=== PATIENT | female | born 1970 | race African-American/Black ===

== ENCOUNTER 2016-05-13 17:23 | Emergency (ER) | payer OTHER ==
[~2016-05-13] VITALS: Ht 165.1 cm; Wt 99.8 kg
[~2016-05-13 17:23] MED LIST: AMOXICILLIN500 M1 PO; NORCO 325 MG-51 TAB PO; VITAMIN D50000 IU PO
[2016-05-13 17:49] VITALS: BP 132/87
--- NOTE | 2016-05-13 18:46 | ED INFLUENZA/URI COMPLAINT ---
History of Present Illness General Chief Complaint: General Adult Stated Complaint: NECK SWELLING X 1DAY Source: patient, old records Exam Limitations: no limitations Vital Signs & Intake/Output Vital Signs & Intake/Output Vital Signs Date Time Temp Pulse Resp B/P Pulse O2 O2 Flow FiO2 Ox Delivery Rate 05/13 1749 97.9 72 18 132/87 96 Room Air ED Intake and Output 05/14 0000 03 1200 Intake Total Output Total Balance Patient 220 lb Weight Allergies Coded Allergies: NO KNOWN ALLERGIES (05/25/13) Reconcile Medications Amoxicillin/Potassium Clav (Augmentin 875-125 Tablet) 875 MG-125 MG TABLET 1 TAB PO BID pharyngitis Ergocalciferol (Vitamin D2) (Vitamin D2) 50,000 UNIT CAPSULE 1 CAP PO ONCE A WEEK SUPPLEMENT (Reported) Levothyroxine Sodium 50 MCG TABLET 1 TAB PO DAILY THYROID (Reported) Metformin HCl (Metformin HCl ER) (Unknown Strength) TAB.ER.24H (Unknown Dose) UNKNOWN (Reported) Multivitamin (Multi-Day Vitamins) 1 EACH TABLET 1 TAB PO DAILY SUPPLEMENT ( Reported) Triage Note: RECEIVED 46 YO FEMALE C/O LEFT NECK SWELLING AND PAIN X 3 DAYS, DIFFICULTY SWALLOWING. PT HAS HAD UPPER RESPIRATORY SYMPTOMS X ONWE WEEK. Triage Nurses Notes Reviewed? yes Onset: Gradual Duration: week(s): (1), constant Timing: recent history Severity: mild, moderate Severity Numbers: 4 Prior Episodes/Possible Cause: occassional episodes No Modifying Factors: none Associated Symptoms: earache, nasal congestion, nasal drainage, sore throat HPI: 46-year-old female with history of hypothyroid presents emergency room complaining of one-week history of rhinorrhea congestion and facial pressure left ear pain and sore throat. She has been using [id number] medications with improvement of her congestion however states the sore throat persist. She denies any recent sick contacts or recent travel, no fevers however positive chills. No shortness of breath cough chest pain abdominal pain nausea vomiting or diarrhea. There are no modifying factors or associated symptoms otherwise. (ABBI AMATO) Past History Travel History Traveled to [place] past 21 day No Medical History Any Pertinent Medical History? see below for history Neurological: NONE EENT: NONE Cardiovascular: NONE Respiratory: NONE Gastrointestinal: NONE Hepatic: NONE Renal: NONE Musculoskeletal: NONE Psychiatric: NONE Endocrine: hypothyroidism Blood Disorders: NONE Cancer(s): NONE Surgical History Surgical History: non-contributory Psychosocial History What is your primary language [place] Tobacco Use: Never used Family History Hx Contributory? No (ABBI AMATO) Review of Systems Review of Systems Constitutional: Reports: see HPI. All Other Systems: Reviewed and Negative Comments Review of systems: See HPI, All other systems negative. Constitutional, no chills no fever, no malaise no weight loss HEENT: No visual changes sore throat no congestion, no ear pain Cardiovascular: No chest pain , no palpitation , Skin, no jaundice no rashes, no change in skin Respiratory: No dyspnea no cough no sputum GI: No nausea no vomiting, no diarrhea, no bloating/constipation : No dysuria No hematuria, Muscle skeletal: No joint pain, no joint swelling, no back pain, no neck pain, Neurologic: No numbnessno headache Psych: No stress Heme/endocrine: No bruising no bleeding Immunology: No lymphadenopathy, (ABBI AMATO) Physical Exam Physical Exam General Appearance: well developed/nourished, alert, awake Ears, Nose, Throat: moist mucous membrane Comments: Well-developed well-nourished patient in no apparent distress. Head/Face: Atraumatic, no maxillary/frontal sinus tenderness, no facial swelling Eyes: PERRL, EOMI, no conjunctival injection Ear:External auditory canal and Tympanic membranes clear, no erythema, no FB. Nose: atraumatic.Normal inspection: No bleeding, no septal hematoma Throat: Moist mucous membranes.mild pharyngeal erythema no exudate no trismus no uvular displacement no exudate no stridor/drooling or assymetry. No swelling or edema. Neck: Supple, (+) Anterior cervical lymphadenopathy, FROM Back: FROM, Nontender Cardiovascular: Regular rate and rhythms no murmurs rubs or gallops, Respiratory: Chest nontender.There were no bony deformities, no asymmetry. No respiratory distress. Patient speaking in full complete sentences. Breath sounds clear to auscultation bilaterally: NO W/R/R Extremities: full range of motion Neuro: Alert and oriented x3 Skin: Warm & dry;No appreciable rash on exposed skin Psych: Mood affect normal, normal memory normal judgment. Core Measures Severe Sepsis Present: No Septic Shock Present: No (ABBI AMATO) Progress Differential Diagnosis: influenza, otitis, pneumonia, pharyngitis, sinusitis, EPIGLOTTITIS, lUDWIGS ANGINA PERITONSILLAR ABSCESS, MALIGNANCY Plan of Care: Orders Procedure Date/time Status RAPID VIRAL INFLUENZA A 05/13 1853 Complete THROAT CULTURE W/QUICK STREP 05/13 1853 Active Microbiology 05/13 1914 NASOPHARYN: Influenza Virus A & B Rapid Smear - COMP Patient speaking in full complete sentences appears in no apparent distress fluent strep swab ordered, Motrin 800 mg by mouth patient is tolerating liquids, speaking in full complete sentences no trismus Discussed with patient plan of care need for supportive care prescription for Augmentin provided advised close follow-up with her primary care physician this week, advised to return anytime sooner with any concerns answered all of her questions and she feels comfortable splint (ABBI AMATO) Initial ED EKG: none (ABBI AMATO) Departure Departure Time of Disposition: 1946 Disposition: HOME OR SELF CARE Condition: Stable Clinical Impression Primary Impression: URI (upper respiratory infection) Referrals: MISTY CAREY APRN (PCP/Family) Additional Instructions: Augmentin as directed. Follow up with her primary care physician tomorrow for follow-up evaluation this week. Tylenol Motrin as needed this prescription was sent to your pharmacy Departure Forms: Customer Survey General Discharge Information Prescriptions: Current Visit Scripts Amoxicillin/Potassium Clav (Augmentin 875-125 Tablet) 1 TAB PO BID #14 TAB (ABBI AMATO) PA/CELLULAR EQUIPMENT INSTALLER Co-Sign Statement Statement: ED Attending supervision documentation- [] I saw and evaluated the patient. I have also reviewed all the pertinent lab results and diagnostic results. I agree with the findings and the plan of care as documented in the PA's/CELLULAR EQUIPMENT INSTALLER's documentation. [X] I have reviewed the ED Record and agree with the PA's/CELLULAR EQUIPMENT INSTALLER's documentation. [] Additions or exceptions (if any) to the PAs/CELLULAR EQUIPMENT INSTALLER's note and plan are summarized below: [] (DAVID RICKS,CHIO Garcia)
[2016-05-13] MEDS ORDERED: LEVOTHYROXINE50 MCG PO (19:06)
[2016-05-13] MEDS ORDERED: VITAMIN D250000 UNIT PO (19:06)
[2016-05-13] MEDS ORDERED: METFORMIN HCL500 M4 (19:07)
[2016-05-13] MEDS ORDERED: MULTI-DAY VITA1 EACH PO (19:07)
[2016-05-13] MEDS ORDERED: AUGMENTIN 875-1 EACH PO (19:48)
== END 2016-05-13 19:56 ==
LOC: ERH 17:23
DX: J06.9 Acute upper respiratory infection, unspecified (principal)
CPT/HCPCS: 87804; 87804-59